=== PATIENT | male | born 1995 | race Caucasian/White ===

== ENCOUNTER 2025-03-05 10:39 | Emergency (ER) | payer SELFPAY ==
[2025-03-05 10:49] VITALS: BP 135/78; PULSE 86; RESP 16; TEMP 36.1; O2SAT 100
--- NOTE | 2025-03-05 11:32 | ED.URI ---
HPI - URI/Sore Throat General Chief Complaint: Upper Respiratory Infection Stated Complaint: Sore Throat/Vomiting/Runny Nose Time Seen by Provider: 03/05/25 11:32 Source: patient Mode of arrival: ambulatory Limitations: no limitations History of Present Illness HPI Narrative: 30-year-old male presents with complaint nasal congestion, fatigue, sore throat for 3-4 items. Afebrile. All systems reviewed and negative except as noted above. Related Data Allergies Allergy/AdvReac Type Severity Reaction Status Date / Time No Known Allergies Allergy Verified 03/05/25 11:19 PMFSH Comments At time of signature, agree with nursing past medical, surgical, social and family history. There is no relevant family history pertinent to the presenting complaint. Exam Narrative: GENERAL: This is a well-nourished, well-developed patient, in no apparent distress. HEAD: normocephalic, atraumatic. EYES: PERRL. Sclera clear/white. Vision is grossly intact. EARS: External ears normal, auditory canals clear and without drainage, TMs normal without perforation. Hearing grossly intact. NOSE: External nose normal with Congestion, clear nasal drainage THROAT: Mucous membranes moist, erythema and swelling irritants as well asthma exudates. NECK: Neck supple, non-tender without lymphadenopathy, masses or thyromegaly. CARDIOVASCULAR: Regular rate and rhythm without murmurs, gallops, or rubs. RESPIRATORY: Clear to auscultation. Breath sounds equal bilaterally. No wheezes, rales, or rhonchi. SKIN: warm, Dry, intact with no suspicious lesions or rash, good texture and turgor. NEURO: awake, alert, and oriented to person, place and time. There were no obvious focal neurologic abnormalities. EXTREMITIES: No joint tenderness, effusion, or edema noted. Course Course Level of Care: Express Care Visit Vital Signs Vital signs: Vital Signs Temperature 36.1 C L 03/05/25 10:49 Pulse Rate 86 03/05/25 10:49 Respiratory Rate 16 03/05/25 10:49 Blood Pressure 135/78 03/05/25 10:49 Pulse Oximetry 100 03/05/25 10:49 Oxygen Delivery Room Air 03/05/25 10:49 Temperature 36.1 C L 03/05/25 10:49 Pulse Rate 86 03/05/25 10:49 Respiratory Rate 16 03/05/25 10:49 Blood Pressure 135/78 03/05/25 10:49 Pulse Oximetry 100 03/05/25 10:49 Oxygen Delivery Room Air 03/05/25 10:49 Reviewed MDM MDM Narrative Medical decision making narrative: positive rapid strep. Will treat with amoxicillin. Patient is well-appearing, nontoxic. Differential Diagnosis Differential Diagnosis: Differential diagnostic considerations for upper respiratory infection include upper respiratory infection, croup, otitis media, sinusitis, viral infection, bronchitis, influenza, pharyngitis, strep, uvulitis.? Lab Data Labs: Lab Results 03/05/25 Range/Units 11:33 POC Grp A Strep Screen Positive (Negative) Discharge Plan Discharge Clinical Impression: Strep throat Patient Disposition: Home Condition: Stable Instructions: Antibiotic Form, Strep Throat (ED) Additional Instructions: Your strep test was positive today. Take antibiotic as prescribed until gone. Change her toothbrush after taking antibiotic for 24 hours. Purchase [id number] pseudoephedrine , to treat nasal congestion, and take as directed on packaging. Drink at least 64 oz of water a day. See your doctor if not improving. Patient Language: German Prescriptions: New amoxicillin 500 mg capsule 500 mg PO Q12H 10 Days Qty: 20 0RF Follow-up/Referrals: UNKNOWN,DOCTOR [Primary Care Provider] Time of Disposition: 11:37
[2025-03-05 11:37] LABS: EDSTREPNEGPOS1 Positive (Negative)
== END 2025-03-05 11:40 | disposition home or self-care (01) ==
PROVIDERS: Emergency Provider Nurse Practitioner Family
DX: J02.0 Streptococcal pharyngitis (principal)
CPT/HCPCS: 87880; 99213; G0463